=== PATIENT | male | born 2000 | race Caucasian/White ===

== ENCOUNTER → 2022-07-28 | Outpatient (RCR) | payer MEDICAID | LOC: WSPT | DX: M24.411 Recurrent dislocation, right shoulder (principal) ==

== ENCOUNTER → 2022-07-28 | Outpatient (RCR) | payer MEDICAID | END | disposition home or self-care (01) | LOC: WSPT | DX: S73.101D Unspecified sprain of right hip, subsequent encounter (principal); Z98.890 Other specified postprocedural states; Y93.61 Activity, american tackle football ==

== ENCOUNTER 2022-08-27 13:30 | Outpatient (RCR) | payer MEDICAID | END 2022-08-28 | disposition home or self-care (01) | LOC: WSPT | DX: M24.411 Recurrent dislocation, right shoulder (principal) ==

== ENCOUNTER 2022-08-27 14:00 | Outpatient (RCR) | payer MEDICAID | END 2022-08-28 | LOC: WSPT | DX: S73.191D Other sprain of right hip, subsequent encounter (principal); X58.XXXD Exposure to other specified factors, subsequent encounter ==

== ENCOUNTER 2022-09-24 14:15 | Outpatient (RCR) | payer MEDICAID | END 2022-09-27 | disposition home or self-care (01) | LOC: WSPT | DX: M24.411 Recurrent dislocation, right shoulder (principal); S73.191A Other sprain of right hip, initial encounter ==